=== PATIENT | male | born 1975 | race Caucasian/White ===

== ENCOUNTER 2019-06-07 14:17 | Emergency (ER) | payer OTHER ==
--- NOTE | 2019-06-07 14:43 | RAD ---
EXAM: 3 views of the left hand COMPARISON: None HISTORY: Hand pain FINDINGS: 3 views of the left hand shows no evidence of acute fracture or dislocation. No degenerativ e changes are seen. Mild dorsal soft tissue swelling is present. IMPRESSION: Unremarkable exam.
[2019-06-07] MEDS ORDERED: Acetaminophen 500 MG TAB ONE (15:15)
== END 2019-06-07 15:29 ==
LOC: ERS 14:17
DX: L03.114 Cellulitis of left upper limb (principal)